=== PATIENT | male | born 1980 | race Caucasian/White ===

== ENCOUNTER 2016-07-28 19:30 | Emergency (ER) | payer SELFPAY ==
[2016-07-28 19:47] VITALS: BP 147/69
--- NOTE | 2016-07-28 21:58 | UC ---
gonsalo Swartz Timothy, scribed for Dory Ryan DO on 07/28/16 at 2024 . Skin Complaint HPI - HPI Summary HPI Summary: Joshua Reed is a 35 yo male presenting to [facility] with itching on the top left side of his head for the past 2 days. He states that he had a dream about an insect burrowing into his scalp, and since then he has had the sensation of an insect on his scalp. Pt states he feels like there is a "bug crawling" in that area. he states it almost feels tick-like, and states every 5 seconds he feels the "bug movement". He also describes it as similar to the experience of feeling static electricity on his scalp. He denies Hx of previous Sx. Pt states he tried to scratch it off with no relief. He denies fever, hot flashes, or cold sweats. Pt has baseline anxiety issues and is currently under pressure due to relationship issues with his partner which just became long distance. 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 He has a Hx of anxiety for which he sees a counselor. He states he is from [facility], and being far from home and his support network makes things more difficult. he states his partner has noticed red spots on his scalp for a long time, but they are chronic and have never itched. His MHx includes anxiety, appendectomy. - History of Current Complaint Chief Complaint: UCSkin Time Seen by Provider: 07/28/16 20:24 Stated Complaint: BUG BITE & ANXIETY Hx Obtained From: Patient Onset/Duration: Sudden Onset, Lasting Days, Still Present Timing: Constant Onset Severity: Moderate Current Severity: Moderate Pain Intensity: 0 Pain Scale Used: 0-10 Numeric Location: Other - scalp Character: Pruritus - mild Aggravating: Nothing Alleviating: Nothing Associated Signs & Symptoms: Positive: Negative - Allergy/Home Medications Allergies/Adverse Reactions: Allergies Allergy/AdvReac Type Severity Reaction Status Date / Time Sulfa Antibiotics Allergy Rash Verified 07/28/16 19:35 Home Medications: Home Medications Fluticasone Propionate (Nasal) [Flonase Allergy Relief] 07/28/16 [History] Review of Systems Constitutional: Negative Skin: Other - bug sensations on his scalp Eyes: Negative ENT: Negative Respiratory: Negative Cardiovascular: Negative Gastrointestinal: Negative Genitourinary: Negative Motor: Negative Neurovascular: Negative Musculoskeletal: Negative Neurological: Negative Psychological: Negative All Other Systems Reviewed And Are Negative: Yes PMH/Surg Hx/FS Hx/Imm Hx - Additional Past Medical History Additional PMH: hay fever Psychological History Of: Reports: Anxiety - Surgical History Surgical History: Yes Surgery Procedure, Year, and Place: appendectomy - Family History Known Family History: Positive: Hypertension, Other - aneurysm, CA, anxiety, CVD - Social History Occupation: Employed Full-time Alcohol Use: Weekly Alcohol Amount: 1-2 drinks at a time Substance Use Type: Marijuana - rare Smoking Status (MU): Never Smoked Tobacco Physical Exam Triage Information Reviewed: Yes Appearance: Well-Appearing, No Pain Distress, Well-Nourished Vital Signs: Initial Vital Signs Temp 99.0 F 07/28/16 19:36 Pulse 92 07/28/16 19:36 Resp 16 07/28/16 19:36 BP 147/69 07/28/16 19:36 Pulse Ox 97 07/28/16 19:36 Vital Signs Reviewed: Yes Eyes: Positive: Conjunctiva Clear. Negative: Discharge ENT: Positive: Hearing grossly normal. Negative: Muffled/hoarse voice Neck: Positive: Supple, Nontender Respiratory: Positive: Lungs clear, Normal breath sounds, No respiratory distress, No accessory muscle use Cardiovascular: Positive: RRR, No Murmur Musculoskeletal Exam: Normal Neurological: Positive: Alert, Muscle Tone Normal Psychological Exam: Normal Psychological: Positive: Age Appropriate Behavior Skin Exam: Normal Course/Dx - Course Course Of Treatment: Joshua Reed is a 35 yo male with anxiety presenting to [facility] with the sensation of a "bug crawling" on his scalp. After clinical examination, he will be discharged home with anxiety and appropriate instructions. - Differential Diagnoses - Skin Complaint Differential Diagnoses: Head Lice, Scabies, Tinea, Other - dandruff - Diagnoses Provider Diagnoses: anxiety Discharge - Discharge Plan Condition: Stable Disposition: HOME Patient Education Materials: Anxiety (ED), Trigeminal Neuralgia (ED) Referrals: [facility] [Outside] - 2 Days Additional Instructions: Please follow up with the primary care physician provided regarding your visit to urgent care today. Your symptoms bear some resemblance to a condition called trigeminal neuralgia. However, at this point they are so mild, it is possible that they are just being generated by anxiety, rather than a neurological disorder. However, we have included some information about trigeminal neuralgia in your packet today. Return to urgent care or the emergency department with any new or recurring symptoms. The documentation as recorded by the gonsalo franco Timothy accurately reflects the service I personally performed and the decisions made by , Dory Ryan DO.
== END 2016-07-28 20:59 | disposition home or self-care (01) ==
LOC: UCEAST 19:30
DX: F41.9 Anxiety disorder, unspecified (principal); L29.9 Pruritus, unspecified
CPT/HCPCS: 99202; G0463